=== PATIENT | male | born 1935 | race Caucasian/White ===

== ENCOUNTER → 2016-10-24 | Outpatient (CLI) | payer OTHER ==
[~2016-10-24] MED LIST: ALLO300T PO; ATOR40TA78 PO; CARV6.2512 PO; CLOP75TA22 PO; DIAZ10TA4 PO; ENAL10TA PO; HYDR-3240 PO; METF500T4 PO; NITR0.4T SL; SENN-25 PO; TAMS-11 PO; VERA240C2 PO
== END | disposition home or self-care (01) ==
LOC: CFH 13:46
PROVIDERS: ATTEND Internal Medicine Cardiovascular Disease
DX: I08.3 Combined rheumatic disorders of mitral, aortic and tricuspid valves (principal); I51.7 Cardiomegaly; I42.8 Other cardiomyopathies; I10 Essential (primary) hypertension; Z95.5 Presence of coronary angioplasty implant and graft
CPT/HCPCS: 93306

== ENCOUNTER → 2017-08-13 | Outpatient (CLI) | payer OTHER ==
[~2017-08-13] MED LIST changes: -CLOP75TA22 PO; +CLOP75TA52 PO
== END | disposition home or self-care (01) ==
LOC: CVU 15:34
PROVIDERS: ATTEND Surgery
DX: I65.23 Occlusion and stenosis of bilateral carotid arteries (principal); E11.9 Type 2 diabetes mellitus without complications; I10 Essential (primary) hypertension
CPT/HCPCS: 93880

== ENCOUNTER → 2018-09-09 | Outpatient (CLI) | payer MEDICARE ==
[~2018-09-09] MED LIST changes: +METF500T17 PO; -METF500T4 PO
== END | disposition home or self-care (01) ==
LOC: CFH 12:19
PROVIDERS: ATTEND Family Medicine
DX: N62 Hypertrophy of breast (principal)
CPT/HCPCS: 76642; 77066

== ENCOUNTER → 2018-09-21 | Outpatient (CLI) | payer MEDICARE | END | disposition home or self-care (01) | LOC: CVU 14:51 | PROVIDERS: ATTEND Surgery | DX: I65.22 Occlusion and stenosis of left carotid artery (principal); I10 Essential (primary) hypertension; I25.2 Old myocardial infarction; E11.9 Type 2 diabetes mellitus without complications; E78.5 Hyperlipidemia, unspecified; Z95.2 Presence of prosthetic heart valve; Z86.79 Personal history of other diseases of the circulatory system | CPT/HCPCS: 93880 ==

== ENCOUNTER → 2019-10-11 | Outpatient (CLI) | payer MEDICARE ==
[~2019-10-11] MED LIST changes: -NITR0.4T SL; +NITR0.4T41 SL
== END | disposition home or self-care (01) ==
LOC: CVU 13:56
PROVIDERS: ATTEND Surgery
DX: I65.23 Occlusion and stenosis of bilateral carotid arteries (principal); I10 Essential (primary) hypertension; E78.5 Hyperlipidemia, unspecified
CPT/HCPCS: 93880

== ENCOUNTER → 2020-03-21 | Outpatient (CLI) | payer MEDICARE ==
[~2020-03-21] MED LIST changes: -ENAL10TA PO; +ENAL10TA9 PO
== END | disposition home or self-care (01) ==
LOC: CVU 14:40
PROVIDERS: ATTEND Internal Medicine Cardiovascular Disease
DX: I08.8 Other rheumatic multiple valve diseases (principal); I11.9 Hypertensive heart disease without heart failure
CPT/HCPCS: 93306; 93356